=== PATIENT | male | born 1950 | race Caucasian/White ===

== ENCOUNTER 2017-04-04 08:03 | Observation (INO) | payer MEDICARE, OTHER ==
--- NOTE | 2017-04-04 08:19 | ED Physician Documentation ---
PD HPI FOCAL NEURO - Stated complaint Stated Complaint: L ARM NUMBNESS - Chief complaint Chief Complaint: Neuro - History obtained from History obtained from: Patient - History of Present Illness Timing - onset: How many hours ago (1.5) Timing - duration: Minutes (90) Timing - details: Still present Time of symptom onset unknown: Time of onset unknown (06:30 am) Severity of deficit: Mild Numbness: Arm, Hand, Left Associated symptoms: No: Headache, Nausea / vomiting, Chest pain Baseline status: positive: A&OX3, ambulatory, indep Similar symptoms before: Has not had sx before - Additional information Additional information: The patient is a 66-year-old male who presents with numbness of his left upper extremity that started about 90 minutes prior to arrival while he was sitting watching the morning news. He denies any associated weakness, and he denies any symptoms involving his face or lower extremities. He denies headache, lightheadedness, chest pain, shortness of breath, nausea or vomiting. He denies history of similar symptoms in the past. Review of Systems Constitutional: denies: Fever, Fatigue Eyes: denies: Decreased vision Ears: denies: Tinnitus/ringing Nose: denies: Congestion Throat: denies: Sore throat Cardiac: denies: Chest pain / pressure, Palpitations Respiratory: denies: Dyspnea, Cough GI: denies: Abdominal Pain, Nausea, Vomiting : denies: Dysuria Skin: denies: Rash Musculoskeletal: reports: Back pain (left mid back). denies: Neck pain, Extremity pain, Extremity swelling Neurologic: reports: Numbness (Left upper extremity.). denies: Focal weakness, Altered mental status, Headache PD PAST MEDICAL HISTORY - Past Medical History Cardiovascular: High cholesterol Respiratory: None Neuro: None Endocrine/Autoimmune: None GI: None : Kidney stones HEENT: None Psych: None Musculoskeletal: None Derm: None - Past Surgical History Past Surgical History: Yes General: Other (hernia) - Present Medications Home Medications: Ambulatory Orders Medication Instructions Recorded Confirmed Acetaminophen 325 mg PO Q6H PRN 04/04/17 04/04/17 - Allergies Allergies/Adverse Reactions: Allergies Allergy/AdvReac Type Severity Reaction Status Date / Time No Known Drug Allergies Allergy Verified 12/29/14 15:58 - Social History Does the pt smoke?: No Smoking Status: Never smoker Does the pt drink ETOH?: Yes Does the pt have substance abuse?: No - Immunizations Immunizations are current?: Yes PD ED PE NORMAL - Vitals Vital signs reviewed: Yes - General General: Alert and oriented X 3, Well developed/nourished - HEENT HEENT: Atraumatic, PERRL, EOMI, Moist mucous membranes, Pharynx benign - Neck Neck: Supple, no meningeal sign, No adenopathy, No JVD - Cardiac Cardiac: RRR, No murmur - Respiratory Respiratory: No respiratory distress, Clear bilaterally - Abdomen Abdomen: Soft, Non tender - Back Back: No CVA TTP, No spinal TTP - Derm Derm: No rash - Extremities Extremities: No edema, No calf tenderness / cord - Neuro Neuro: Alert and oriented X 3, care aide 2-12 intact, No motor deficit, Normal speech , Other (Decreased light touch sensation left upper extremity and left lower extremity.) Eye Opening: Spontaneous Motor: Obeys Commands Verbal: Oriented GCS Score: 15 NIHSS - Time Time: 08:10 - Level of Consciousness Level of consciousness: (0) Alert, Keenly responsive LOC Questions: (0) Answers both Q's correct LOC Commands: (0) Performs both correctly - Gaze Best Gaze: (0) Normal - Visual Visual: (0) No loss - Facial Palsy Facial Palsy: (0) Normal, symmetrical movement - Motor Arms (both separate) Motor Arm (right): (0) No drift Motor Arm (left): (0) No drift - Motor Legs (both separate) Motor Leg (right): (0) No drift Motor Leg (left): (0) No drift - Limb Ataxia Limb Ataxia: (0) Absent - Sensory Sensory: (1) Kwmz-ir-vellnawg loss - Best Language Best Language: (0) No aphasia - Dysarthria Dysarthria: (0) Normal - Extinction and Inattention (formally neg Extinction and inattention: (0) No abnormality - Total Score/Results Total Score/Result: 1 Results - Vitals Vitals: Vital Signs - 24 hr 04/04/17 04/04/17 04/04/17 08:11 08:33 08:45 Temperature 36.2 C L Heart Rate 67 65 62 Respiratory 17 15 12 Rate Blood Pressure 154/89 H 135/79 H 135/79 H O2 Saturation 97 99 97 Oxygen O2 Source Room air - EKG (time done) 08:12 Rate: Rate (enter#) (62) Rhythm: NSR, LAE [place]: Normal Intervals: Normal ID QRS: Normal Ischemia: Normal ST segments Computer interpretation: Agree with computer - Labs Labs: Laboratory Tests 04/04/17 04/04/17 04/04/17 08:40 08:40 08:40 WBC 8.8 RBC 4.78 Hgb 15.0 Hct 44.6 MCV 93.4 MCH 31.4 H MCHC 33.6 RDW 13.3 Plt Count 226 MPV 7.5 Neut # 4.1 Lymph # 3.7 H [place] # 0.7 Eos # 0.1 Baso # 0.1 Absolute Nucleated RBC 0.00 Nucleated RBC % 0.0 PT 11.8 INR 1.0 APTT 28.1 Sodium 138 Potassium 4.0 Chloride 101 Carbon Dioxide 25 Anion Gap 12.0 BUN 15 Creatinine 0.7 Estimated GFR (MDRD) 112 Glucose 146 H Calcium 9.4 Total Bilirubin 0.8 AST 25 ALT 31 Alkaline Phosphatase 38 L Troponin I Total Protein 6.7 Albumin 3.9 Globulin 2.8 Albumin/Globulin Ratio 1.4 Triglycerides Cholesterol LDL Cholesterol, Calc VLDL Cholesterol HDL Cholesterol LDL/HDL Ratio Cholesterol/HDL Ratio Lipase 35 04/04/17 04/04/17 08:40 08:40 WBC RBC Hgb Hct MCV MCH MCHC RDW Plt Count MPV Neut # Lymph # [place] # Eos # Baso # Absolute Nucleated RBC Nucleated RBC % PT INR APTT Sodium Potassium Chloride Carbon Dioxide Anion Gap BUN Creatinine Estimated GFR (MDRD) Glucose Calcium Total Bilirubin AST ALT Alkaline Phosphatase Troponin I < 0.04 Total Protein Albumin Globulin Albumin/Globulin Ratio Triglycerides 243 H Cholesterol 206 H LDL Cholesterol, Calc 123 VLDL Cholesterol 49 HDL Cholesterol 34 L LDL/HDL Ratio 3.6 Cholesterol/HDL Ratio 6.1 Lipase - Rads (name of study) Head CT stroke protocol Radiology: Prelim report reviewed, EMP read contemporaneously, See rad report ( Normal head CT. No evidence of intracranial hemorrhage or recent infarct.) PD MEDICAL DECISION MAKING - ED course Complexity details: reviewed results, re-evaluated patient, considered differential, d/w patient, d/w senior telecommunications consultant ED course: The patient's presentation is suggestive of stroke versus TIA, with left sided mild sensory deficit. Examination reveals no evident motor deficit. Head CT stroke protocol reveals no intracranial hemorrhage or mass-effect. Treatment in the emergency department included administration of 4 baby aspirin orally. I discussed his condition with the neurologist at [facility], and he advises against TPA given the minor nature of the patient's symptoms, and the fact that his deficit has been improving since his arrival in the emergency department. I discussed risks and benefits of TPA with the patient, and he agrees that the potential risk is greater than the expected benefit. I discussed his condition with Dr. Ann, the hospitalist, who will admit him for further evaluation and treatment. Departure - Departure Disposition: ED Place in Observation Clinical Impression: Left sided numbness Condition: Stable Discharge Date/Time: 04/04/17 10:20
--- NOTE | 2017-04-04 08:40 | CT Report ---
EXAM: CT HEAD EXAM DATE: 04/04/2017 08:29 AM. CLINICAL HISTORY: Left sided numbness since 6:30 AM today. COMPARISON: None. TECHNIQUE: Multiaxial CT images were obtained from the foramen magnum to the vertex. Reformats: Coron al. IV contrast: None. In accordance with CT protocol optimization, one or more of the following dose reduction techniques w ere utilized for this exam: automated exposure control, adjustment of mA and/or KV based on patient s ize, or use of iterative reconstructive technique. FINDINGS: Parenchyma: No intraparenchymal hemorrhage. No evidence of mass, midline shift, or CT findings of inf arction. Naqvi-white differentiation is distinct. Tiny physiologic left basal ganglia calcification. Extraaxial Spaces: Normal for age. No subdural or epidural collections identified. Ventricles: Normal in size and position. Sinuses and Orbits: Imaged paranasal sinuses, orbits, and mastoids show no significant abnormality. Bones: No evidence of fracture or calvarial defect. Other: None. IMPRESSION: Normal head CT. No evidence for intracranial hemorrhage or large recent infarct. CRITICAL TEST: The findings were discussed with Dr. Dietrich on date of exam at 8:36 AM. [facility] Referring Provider Line: [phone] SITE ID: [id number]
[2017-04-04 08:44] LABS: BASOPHILS # (AUTO) 0.1 10^3/uL (0.0-0.1); BASOPHILS % (AUTO) 1.1 %; EOSINOPHILS # (AUTO) 0.1 10^3/uL (0.0-0.7); EOSINOPHILS % (AUTO) 1.5 %; LYMPHOCYTES # (AUTO) 3.7 10^3/uL (1.5-3.5); LYMPHOCYTES % (AUTO) 42.1 %; MEAN CORPUSCULAR HEMOGLOBIN 31.4 pg (27.0-31.0); MEAN CORPUSCULAR HGB CONC 33.6 g/dL (32.0-36.0); MEAN CORPUSCULAR VOLUME 93.4 fL (80.0-94.0); MEAN PLATELET VOLUME 7.5 fL (7.4-11.4); MONOCYTES # (AUTO) 0.7 10^3/uL (0.0-1.0); MONOCYTES % (AUTO) 8.5 %; NEUTROPHILS # (AUTO) 4.1 10^3/uL (1.5-6.6); NEUTROPHILS % (AUTO) 46.8 %; PLT - PLATELET COUNT 226 10^3/uL (130-450); RED BLOOD COUNT 4.78 10^6/uL (4.70-6.10); RED CELL DISTRIBUTION WIDTH 13.3 % (12.0-15.0); WHITE BLOOD COUNT 8.8 x10^3/uL (4.8-10.8)
[2017-04-04] MEDS ORDERED: ASPIRIN CHEW 81 MG TABLET PO STA (08:49)
[2017-04-04 08:50] LABS: PT - PROTHROMBIN TIME 11.8 secs (9.9-12.6)
[2017-04-04 08:57] LABS: ALBUMIN 3.9 g/dL (3.2-5.5); ALBUMIN/GLOBULIN RATIO 1.4 (1.0-2.2); BILIRUBIN,TOTAL 0.8 mg/dL (0.2-1.0); CALCIUM 9.4 mg/dL (8.5-10.3); CREATININE 0.7 mg/dL (0.6-1.2); TOTAL PROTEIN 6.7 g/dL (6.7-8.2)
[2017-04-04] MEDS ORDERED: HYDROmorphone 1 MG/ML SYRINGE IVP PRN (08:58)
[2017-04-04] MEDS ORDERED: ACETAMINOPHEN 325 MG TABLET PO PRN (08:58)
[2017-04-04] MEDS ORDERED: PROCHLORPERAZINE 10 MG/2 ML VIAL IVP PRN (08:58)
[2017-04-04] MEDS ORDERED: SODIUM CHLORIDE FLUSH 0.9% 10 ML SYRINGE IVP PRN (08:58)
[2017-04-04] MEDS ORDERED: ZOLPIDEM 5 MG TABLET PO PRN (08:58)
[2017-04-04 09:26] LABS: CHOL/HDL RATIO 6.1 (<5.0); CHOLESTEROL 206 mg/dL; HDL CHOLESTEROL 34 mg/dL; LDL CHOLESTEROL,CALCULATED 123 mg/dL; LDL/HDL RATIO 3.6 (<3.6); VLDL CHOLESTEROL 49 mg/dL
[2017-04-04] MEDS: FAMOTIDINE 20 MG TABLET PO SCH (11:30)
[2017-04-04] MEDS: POLYETHYLENE GLYCOL 3350 17 GM PACKET PO SCH (11:30)
--- NOTE | 2017-04-04 11:55 | Ultrasound Report ---
CAROTID DUPLEX: 04/04/2017 CLINICAL INDICATION: TIA. TECHNIQUE: Real-time sonographic vascular imaging was performed by the fund director through the carotid arteries utilizing both color-flow and Doppler spectral analysis. Multiple call center representative static images were saved for review. RIGHT Vessel PSV cm/sec EDV cm/sec ICA/CCA PSV Ratio Degree of stenosis Plaque Estimate% RCCA Prox 97 --- --- --- --- RCCA Dist 83 22 --- --- --- RECA 114 --- --- --- --- RT BULB 137 22 1.65 --- --- JOSIAS Prox 48 16 0.57 --- --- JOSIAS Mid 55 19 0.66 --- --- JOSIAS Dist 65 22 0.78 --- --- RVA 44 --- --- --- --- RVA flow direction: Antegrade LEFT Vessel PSV cm/sec EDV cm/sec ICA/CCA PSV Ratio Degree of stenosis Plaque Estimate% LCCA Prox 98 --- --- --- --- LCCA Dist 79 22 --- --- --- LECA 127 --- --- --- --- LFT BULB 90 24 1.1 --- --- LICA Prox 60 15 0.75 --- --- LICA Mid 73 28 0.92 --- --- LICA Dist 64 21 0.81 --- --- LVA 62 --- --- --- --- LVA flow direction: Antegrade Velocity criteria are extrapolated from diameter data as defined by the Society of Radiologists in Ultrasound Consensus Conference Radiology 2003; 229; 340-346. Degree of Stenosis ICA PSV cm/sec ICA/CCA RSV Ratio ICA EDV cm/sec Plaque Estimate % % Normal < 125 < 40 < 2.0 None <50 < 125 <40 < 2.0 < 50 50-69 125-130 40-100 2.0-4.0 >/= 50 >/=70 but less than> 230 > 100 > 4.0 >/= 50 near occlusion Near occlusion High, low or Variable Variable Visible undetectable Total occlusion Undetectable Not applicable Not applicable No detectable lumen FINDINGS RIGHT: There is calcified plaquing in the right carotid bifurcation, without evidence of a focal hemodynamically significant stenosis. LEFT: There is calcified plaquing in the left carotid bifurcation, without evidence of a focal hemodynamically significant carotid stenosis. The vertebral arteries demonstrate antegrade flow bilaterally. Incidental note is made of a left thyroid nodule. If this has not been previously evaluated, outpatient followup thyroid ultrasound is recommended. IMPRESSION: NO EVIDENCE OF A HEMODYNAMICALLY SIGNIFICANT CAROTID STENOSIS. TD: 04/04/2017 11:22 SHANNAN
[2017-04-04] MEDS: SODIUM CHLORIDE FLUSH 0.9% 10 ML SYRINGE IVP SCH ×2 (15:04→22:00)
[2017-04-05] MEDS: SODIUM CHLORIDE FLUSH 0.9% 10 ML SYRINGE IVP SCH (05:59)
[2017-04-05 07:32] VITALS: BP 120/76
[2017-04-05 07:55] LABS: CHOL/HDL RATIO 6.3 (<5.0); CHOLESTEROL 222 mg/dL; HDL CHOLESTEROL 35 mg/dL; LDL CHOLESTEROL,CALCULATED 157 mg/dL; LDL/HDL RATIO 4.5 (<3.6); VLDL CHOLESTEROL 30 mg/dL
[2017-04-05] MEDS: FAMOTIDINE 20 MG TABLET PO SCH (08:29)
[2017-04-05] MEDS ORDERED: ASPIRIN CHEW 81 MG TABLET PO SCH (09:00)
[2017-04-05] MEDS ORDERED: TAMSULOSIN 0.4 MG CAPSULE PO SCH (09:00)
--- NOTE | 2017-04-05 10:29 | Discharge Plan ---
Discharge Plan Disposition: 01 Home, Self Care Condition: Stable Diet: Cardiac Activity Restrictions: No Restrictions Shower Restrictions: No Driving Restrictions: No Additional Instructions or Follow Up instructions: See your PCP and/or a Chiropractor regarding this numbness No Smoking: If you smoke, Please STOP! Call for help.
[2017-04-05] MEDS: POLYETHYLENE GLYCOL 3350 17 GM PACKET PO SCH (10:39)
--- NOTE | 2017-04-05 13:21 | MRI Report ---
EXAM: MRI CERVICAL SPINE WITHOUT CONTRAST EXAM DATE: 04/05/2017 11:50 AM. CLINICAL HISTORY: 66-year-old man with left hand and forearm numbness since yesterday morning. COMPARISONS: None. TECHNIQUE: Multiplanar, multisequence T1-weighted and fluid-sensitive sequences of the cervical spine without contrast. Other: None. FINDINGS: Neurologic Structures: Cord is normal in signal and caliber. Alignment: No scoliosis or spondylolisthesis. Bone Marrow: No gross fractures or bone lesions. Minimal degenerative endplate edema is present at C5 -C6, right side worse than left, and along the posterior corners of C3-C4. Interspace Levels/Facets: C2-C3: Unremarkable. C3-C4: There is mild disk height loss. Broad based disk bulge results in mild narrowing of the centra l canal. Uncovertebral joint hypertrophy and facet hypertrophy result in mild/moderate narrowing of t he right neural foramen and mild narrowing on the left. C4-C5: Small broad-based disk bulge and focal thickening of ligamentum flavum resulting in mild/moder ate narrowing of the central canal. Uncovertebral joint hypertrophy and facet hypertrophy result in m oderate narrowing of the left neural foramen and mild/moderate narrowing on the right. C5-C6: There is moderate disk height loss. Broad-based disk bulge results in moderate narrowing of th e central canal. Uncovertebral joint hypertrophy result in moderate narrowing of the neural foramina bilaterally, left side worse than right. C6-C7: There is mild disk height loss. Right paracentral disk bulge results in mild narrowing of the central canal. Uncovertebral joint hypertrophy results in mild to moderate narrowing of the right sana ral foramen and minimal narrowing on the left. C7-T1: Unremarkable. Musculature: Normal. No edema or fatty atrophy. Other: 14 mm cyst is present along the posterior margin of the left lobe of the thyroid. The paravert ebral and prevertebral soft tissues are otherwise unremarkable. IMPRESSION: 1. Multilevel degenerative disk changes with mild bony endplate edema at C5-C6 and, to a lesser exten t, C3-C4. 2. Degenerative changes result in the following: - C3-C4: Mild narrowing of the central canal. Mild to moderate narrowing of the right neural foramen and mild narrowing on the left. - C4-C5: Mild to moderate narrowing of the central canal. Moderate narrowing of the left neural esdras en and mild to moderate narrowing on the right. - C5-C6: Moderate narrowing of the central canal. Moderate narrowing of the neural foramina bilateral ly, left side worse and right. - C6-C7: Mild narrowing of the central canal. Mild to moderate narrowing of the right neural foramen. [facility] Referring Provider Line: [phone] SITE ID: [id number]
--- NOTE | 2017-04-05 13:24 | MRI Report ---
EXAM: MRI BRAIN WITHOUT CONTRAST EXAM DATE: 04/05/2017 11:51 AM. CLINICAL HISTORY: 66-year-old man with TIA. Patient had left hand and forearm numbness beginning yest erday morning. COMPARISON: Noncontrast head CT on 04/04/2017. TECHNIQUE: Multiplanar, multisequence T1-weighted and fluid-sensitive MR sequences of the brain were performed. Sequences optimized for routine evaluation. Other: None. IV Contrast: None. FINDINGS: Parenchyma: Small focus of restricted diffusion with prominent corresponding FLAIR hyperintensity is present in the right postcentral gyrus, consistent with acute infarct. Infarct measures approximately 10 x 8 mm in maximum axial dimensions. No evidence of hemorrhage on susceptibility weighted sequence . Small focus of encephalomalacia is present in the left precentral and postcentral gyrus, consistent w ith remote infarct and measuring approximately 12 mm in maximum diameter. Otherwise, parenchyma demon strates minimal nonspecific FLAIR hyperintensities in the deep cerebral and periventricular white mat ter. No evidence of prior hemorrhage on susceptibility weighted sequence. Pituitary: Unremarkable. Ventricles and Extra-axial Spaces: Ventricles are nearly symmetric and normal in size for age. Extra- axial spaces are unremarkable. Orbits: Unremarkable. Sinuses: Paranasal sinuses and mastoid air cells are clear. Major Vascular Flow Voids: Intact. IMPRESSION: 1. Small acute infarct (1-7 days) in the right post central gyrus. No evidence of hemorrhage. 2. Small focus of encephalomalacia in the left precentral and post central gyrus, consistent with rem ote infarct. [facility] The above findings were discussed with NAEL Laughlin by Dr. Matthew Tello at 13:22 hrs on . Referring Provider Line: [phone] SITE ID: [id number]
--- NOTE | 2017-04-05 19:51 | HISTORY & PHYSICAL EXAMINATION ---
DATE OF SERVICE: 04/04/2017 Physician: Gabriella Lake MD DATE OF ADMISSION: 04/04/2017. HISTORY OF PRESENT ILLNESS: This is a 66-year-old white male with a negative past medical history. He takes no routine prescription medications, only Tylenol p.r.n. pain. The patient presented with sudden onset of left palm numbness, extending to the 4th and 5th fingers of the plantar surface of his hand. He was worried that this was a stroke and presented to the emergency room. The emergency room evaluation also described possible numbness of the left lower extremity and his imaging study showed no stroke by CT scan, but he was admitted for further evaluation for stroke-like symptoms. His symptoms were already improving. The emergency room doctor called the neurologist for decision regarding tPA, and it was decided not to use it because the patient's symptoms were declining and the patient did not want to undergo the bleeding risk. He is being placed in Observation for workup for a TIA. PAST MEDICAL HISTORY: Negative. MEDICATIONS AT HOME: only Tylenol p.r.n. pain. ALLERGIES: NONE. SOCIAL HISTORY: The patient is a nonsmoker. Drinks social alcohol. Denies any illicit drug use. The patient is active. He used to be a motor cyclist and a snowboarder. REVIEW OF SYSTEMS: A comprehensive review of systems was performed and only the positives are as above. PHYSICAL EXAMINATION: GENERAL: A white male in no distress, sitting in a chair. VITAL SIGNS: Blood pressure 150/100. Heart rate 55, in sinus rhythm. Afebrile. Room air saturation 97%. HEENT: Unremarkable. Moist oral mucosa. NECK: Without JVD, carotid bruits, thyromegaly, or lymphadenopathy. LUNGS: Clear. HEART: Heart sounds normal. No audible murmur or gallop. ABDOMEN: Soft with positive bowel sounds. No tenderness or organomegaly. EXTREMITIES: No clubbing, cyanosis or edema. NEUROLOGIC: Cranial nerves are intact. There is no weakness of the upper or lower extremities and symmetrical strength bilaterally. Reflexes are normal grossly. He does have abnormal sensation to light touch in the left palmar area, not in the legs in any location. LABORATORY DATA: Normal electrolytes. Normal BUN and creatinine. Normal liver tests. Troponin not detectable. Cholesterol 206, LDL 123, triglycerides 243, lipase normal. INR normal. CBC essentially normal. EKG: Normal sinus rhythm, left atrial enlargement, PAC; otherwise within normal limits. IMAGING: Head CT: Normal head CT with no evidence of hemorrhage or large recent infarct. Carotid Doppler: Calcifying plaque in the right carotid bifurcation but no significant stenosis is described bilaterally, and the vertebral arteries have antegrade flow. IMPRESSION/DIAGNOSES 1. Transient ischemic attack versus cervical spine "pinched nerve". 2. Hypertension. 3. Possible sleep apnea with noncompliance with CPAP (from a nurse's report to me). PLAN: Place the patient in Observation. Do gfrequent neuro checks. Monitor rhythm on telemetry to rule out atrial fibrillation. Obtain an echo to evaluate for a cardiac source of embolus or an intracardiac shunt. Obtain a brain MRI/MRA and a cervical spine MRI, as well. Recheck cholesterol levels, as the ones available were not done from a fasting blood specimen. Deep venous thrombosis prophylaxis: SCDs. No anticoagulant, as there may be evidence of post-stroke hemorrhagic evolvement on brain imaging. CODE STATUS: FULL CODE. ATTESTATION: The patient is expected to be discharged or transferred to another facility within hours: Yes. TD: 04/05/2017 19:43 SHANNAN
--- NOTE | 2017-04-16 04:42 | DISCHARGE SUMMARY ---
Physician: Gabriella Lake MD DATE OF ADMISSION: 04/04/2017 DATE OF DISCHARGE: 04/05/2017 HISTORY OF PRESENT ILLNESS: This is a 66-year-old, white male with a negative past medical history who takes no prescription medications except Tylenol p.r.n. pain. He presented with acute onset of left palm numbness, and was placed in observation for evaluation of a TIA. The patient described waxing and waning symptoms while here and these were improved if he "got up and shook his left arm." Various imaging studies were done. HOSPITAL COURSE AND DISCHARGE DIAGNOSES 1. Transient ischemic attack. He had a head CT done initially while in the emergency room, this showed no acute findings. Imaging studies were done the following day and included a brain MRI which showed small acute infarct (1-7 days old) in the right posterior central gyrus without hemorrhage. Also, a small focus of encephalomalacia in the left precentral and post-central gyrus, consistent with a remote infarct. Because of these findings, the patient had education regarding causes of transient ischemic attack and cerebrovascular accident. Good risk factor management was advised. He was started on aspirin and Plavix daily and lipid management daily (see below). Recommendation is to follow up in the [facility] ([place], [place]) Neurology Stroke Clinic or with a neurologist from referral of his PCP. 2. Old cerebrovascular accident. As per the brain MRI imaging, there was already evidence of prior stroke and the same management is advised. 3. C-spine disease. Because some of his symptoms were atypical for stroke, in that they improved with "shaking his arm," the patient also underwent cervical spine imaging which showed multilevel degenerative disk changes with mild bony endplate edema at C5-C6 and C3-C4 , and degenerative changes with mild narrowing of the central cord between C3-C4, C4-C5, C5- C6 and C6-C7. Further management of this is also advised. 4. Hyperlipidemia. A fasting lipid panel was performed and this showed a total cholesterol of 222, LDL of 157, triglycerides of 151, and HDL of 35. Because of this , he was started on Lipitor 40 mg p.o. daily in the evening and a heart healthy diet was reviewed with him by myself. ALLERGIES: NO KNOWN ALLERGIES. MEDICATIONS AT THE TIME OF DISCHARGE 1. Lipitor 40 mg at bedtime. 2. Baby aspirin daily. 3. Plavix 75 mg daily. LABORATORIES AND IMAGING: Reviewed and summarized above. CONDITION AT DISCHARGE: Stable. PHYSICAL EXAMINATION AT DISCHARGE VITAL SIGNS: Blood pressure 120/76, pulse of 58 in sinus rhythm, afebrile, room air saturation 96%. HEENT: Unremarkable. NECK: Without JVD or carotid bruits. CHEST: Clear. HEART: Sounds normal. No audible murmurs. ABDOMEN: Soft. Positive bowel sounds. Nontender. EXTREMITIES: No clubbing, cyanosis or edema. NEUROLOGIC: Grossly intact. CODE STATUS: FULL CODE. FOLLOWUP: PCP and neurologist or [facility] ([place], [place]) Neurology Stroke Clinic. TIME REQUIRED TO COMPLETE THIS ENTIRE DISCHARGE: 45 minutes. TD: 04/16/2017 04:41 SHANNAN
== END 2017-04-05 14:13 | disposition home or self-care (01) ==
LOC: ED 08:03 → OBS 08:58
PROVIDERS: ADMIT Internal Medicine; ATTEND Internal Medicine
DX: I63.9 Cerebral infarction, unspecified (principal); I10 Essential (primary) hypertension; E78.5 Hyperlipidemia, unspecified; G83.24 Monoplegia of upper limb affecting left nondominant side; R40.2412 Glasgow coma scale score 13-15, at arrival to emergency department; R29.701 NIHSS score 1; Z86.73 Personal history of transient ischemic attack (TIA), and cerebral infarction without residual deficits
CPT/HCPCS: 36415; 70450; 70551; 72141; 80053; 80061; 83690; 84484; 85025; 85610; 85730; 93005; 93306; 93880; 99285; A9270; G0378; 83721; 99284

== ENCOUNTER 2017-11-04 11:12 | Outpatient (CLI) | payer MEDICARE, OTHER ==
--- NOTE | 2017-11-04 14:29 | XRAY Report ---
Reason: OSTEOARTHRITIS,KNEE RT.,LT SHOIULDER PAIN Procedure Date: 11/04/2017 Accession Number: [id number] / [id number] Procedure: XR - Knee 3 View RT CPT Code: FULL RESULT: EXAM: RIGHT KNEE RADIOGRAPHY EXAM DATE: 11/04/2017 11:53 AM. CLINICAL HISTORY: Right knee pain COMPARISON: None. TECHNIQUE: 3 views. FINDINGS: Bones: No fractures or bone lesions. Joints: Minimal early patellofemoral spurring. No effusion. No subluxations. Soft Tissues: Vascular calcification No soft tissue swelling. IMPRESSION: Negative right knee radiography for age. [facility]
--- NOTE | 2017-11-04 14:38 | XRAY Report ---
Reason: OSTEOARTHRITIS,KNEE RT, LT SHOULDER PAIN Procedure Date: 11/04/2017 Accession Number: [id number] / [id number] Procedure: XR - Shoulder 2 View LT CPT Code: FULL RESULT: EXAM: LEFT SHOULDER RADIOGRAPHY EXAM DATE: 11/04/2017 11:53 AM. CLINICAL HISTORY: LT SHOULDER PAIN. COMPARISON: None. TECHNIQUE: 3 views. FINDINGS: Bones: No fracture or bone lesion. Joints: The glenohumeral and acromioclavicular joints are anatomically aligned. There is degenerative change at the acromioclavicular articulation with spurring. Soft tissues: The included hemithorax is unremarkable. No soft tissue calcification. IMPRESSION: Mild left shoulder degenerative change without superimposed acute findings. [facility]
== END 2017-11-04 11:13 | disposition home or self-care (01) ==
LOC: DI 11:12
PROVIDERS: ATTEND Family Medicine
DX: M19.012 Primary osteoarthritis, left shoulder (principal); M17.11 Unilateral primary osteoarthritis, right knee

== ENCOUNTER 2018-05-11 12:46 | Outpatient (CLI) | payer MEDICARE, OTHER | END 2018-05-11 12:47 | disposition home or self-care (01) | LOC: SC 12:46 | PROVIDERS: ATTEND Internal Medicine Pulmonary Disease | DX: G47.33 Obstructive sleep apnea (adult) (pediatric) (principal); E66.9 Obesity, unspecified; Z68.37 Body mass index [BMI] 37.0-37.9, adult | CPT/HCPCS: 99203; G0463; 99212 ==

== ENCOUNTER 2018-05-26 12:10 | Outpatient (CLI) | payer MEDICARE, OTHER ==
[2018-05-26 19:03] LABS: BILIRUBIN,URINE NEGATIVE (NEGATIVE); GLUCOSE, URINE (UA) NEGATIVE (NEGATIVE); KETONES,URINE (UA) NEGATIVE (NEGATIVE); LEUKOCYTE ESTERASE, URINE NEGATIVE (NEGATIVE); NITRITE,URINE NEGATIVE (NEGATIVE); OCCULT BLOOD,URINE NEGATIVE (NEGATIVE); PROTEIN,URINE NEGATIVE (NEGATIVE); UROBILINOGEN,URINE 0.2 (NORMAL) E.U./dL (NORMAL)
[2018-05-26 19:05] LABS: CLARITY,URINE CLEAR (CLEAR)
[2018-05-26 19:21] LABS: BASOPHILS % (AUTO) 0.3 %; EOSINOPHILS # (AUTO) 0.1 10^3/uL (0.0-0.7); EOSINOPHILS % (AUTO) 1.2 %; HGB - HEMOGLOBIN 14.6 g/dL (14.0-18.0); LYMPHOCYTES # (AUTO) 3.8 10^3/uL (1.5-3.5); MEAN CORPUSCULAR HEMOGLOBIN 31.9 pg (27.0-31.0); MEAN CORPUSCULAR VOLUME 93.8 fL (80.0-94.0); MEAN PLATELET VOLUME 8.5 fL (7.4-11.4); MONOCYTES # (AUTO) 0.5 10^3/uL (0.0-1.0); MONOCYTES % (AUTO) 5.8 %; NEUTROPHILS # (AUTO) 3.5 10^3/uL (1.5-6.6); NEUTROPHILS % (AUTO) 44.7 %; PLT - PLATELET COUNT 211 10^3/uL (130-450); RED BLOOD COUNT 4.58 10^6/uL (4.70-6.10); RED CELL DISTRIBUTION WIDTH 13.2 % (12.0-15.0); WHITE BLOOD COUNT 7.9 x10^3/uL (4.8-10.8)
[2018-05-26 19:26] LABS: ALBUMIN 4.5 g/dL (3.2-5.5); ALBUMIN/GLOBULIN RATIO 1.8 (1.0-2.2); ALKALINE PHOSPHATASE 45 IU/L (42-121); ALT ALANINE AMINOTRANSFERASE 27 IU/L (10-60); AST ASPARTATE AMINOTRANSFERASE 22 IU/L (10-42); BILIRUBIN,TOTAL 0.8 mg/dL (0.2-1.0); BUN - BLOOD UREA NITROGEN 12 mg/dL (6-20); CALCIUM 9.1 mg/dL (8.5-10.3); CARBON DIOXIDE - CO2 27 mmol/L (21-32); CHLORIDE 105 mmol/L (101-111); CHOL/HDL RATIO 3.3 (<5.0); CHOLESTEROL 120 mg/dL; CREATININE 0.7 mg/dL (0.6-1.2); GFR - MDRD 112 (>89); GLUCOSE 107 mg/dL (70-100); HDL CHOLESTEROL 36 mg/dL; LDL CHOLESTEROL,CALCULATED 66 mg/dL; LDL/HDL RATIO 1.8 (<3.6); SODIUM 140 mmol/L (135-145); VLDL CHOLESTEROL 18 mg/dL
[2018-05-26 20:15] LABS: HB2 TOTAL 15.5 g/dL; HEMOGLOBIN A1C 0.69 g/dL; HEMOGLOBIN A1C % 6.2 % (4.6-6.2)
[2018-05-27 13:26] LABS: HEPATITIS C ANTIBODY NON-REACTIVE (NON-REACTIVE)
== END 2018-05-26 12:11 | disposition home or self-care (01) ==
LOC: LAB.WCP 12:10
PROVIDERS: ATTEND Family Medicine
DX: E78.5 Hyperlipidemia, unspecified (principal); R31.9 Hematuria, unspecified; R73.01 Impaired fasting glucose; Z12.5 Encounter for screening for malignant neoplasm of prostate; I10 Essential (primary) hypertension; Z11.59 Encounter for screening for other viral diseases
CPT/HCPCS: 36415; 80053; 80061; 81003; 83036; 85025; 86803; G0103; 81001; 83721; 84153; 87086

== ENCOUNTER → 2018-10-28 | Outpatient (CLI) | payer MEDICARE, OTHER ==
[2018-10-28 18:53] LABS: BASOPHILS % (AUTO) 0.5 %; EOSINOPHILS # (AUTO) 0.1 10^3/uL (0.0-0.7); EOSINOPHILS % (AUTO) 1.1 %; HGB - HEMOGLOBIN 14.5 g/dL (14.0-18.0); LYMPHOCYTES # (AUTO) 3.3 10^3/uL (1.5-3.5); LYMPHOCYTES % (AUTO) 40.8 %; MEAN CORPUSCULAR HEMOGLOBIN 32.2 pg (27.0-31.0); MEAN CORPUSCULAR HGB CONC 33.3 g/dL (32.0-36.0); MEAN CORPUSCULAR VOLUME 96.9 fL (80.0-94.0); MEAN PLATELET VOLUME 10.1 fL (7.4-11.4); MONOCYTES # (AUTO) 0.5 10^3/uL (0.0-1.0); MONOCYTES % (AUTO) 6.7 %; NEUTROPHILS # (AUTO) 4.1 10^3/uL (1.5-6.6); NEUTROPHILS % (AUTO) 50.3 %; PLT - PLATELET COUNT 233 10^3/uL (130-450); WHITE BLOOD COUNT 8.1 x10^3/uL (4.8-10.8)
[2018-10-28 19:15] LABS: ALBUMIN 4.1 g/dL (3.2-5.5); ALBUMIN/GLOBULIN RATIO 1.4 (1.0-2.2); BILIRUBIN,TOTAL 0.7 mg/dL (0.2-1.0); CALCIUM 9.4 mg/dL (8.5-10.3); CREATININE 0.7 mg/dL (0.6-1.2); URIC ACID 4.6 mg/dL (2.6-7.2)
== END ==
LOC: LAB.WCP 08:00
PROVIDERS: ATTEND Family Medicine
DX: N20.0 Calculus of kidney (principal)
CPT/HCPCS: 36415; 80053; 84550; 85025

== ENCOUNTER 2018-10-30 08:00 | Outpatient (CLI) | payer MEDICARE, OTHER | END 2018-10-30 23:59 | disposition home or self-care (01) | LOC: LAB.WCP 08:00 | PROVIDERS: ATTEND Family Medicine | DX: N20.0 Calculus of kidney (principal) | CPT/HCPCS: 81599; 84560 ==

== ENCOUNTER 2019-05-21 08:00 | Outpatient (CLI) | payer MEDICARE, OTHER ==
[2019-05-21 12:24] LABS: BASOPHILS % (AUTO) 0.4 %; EOSINOPHILS # (AUTO) 0.1 10^3/uL (0.0-0.7); EOSINOPHILS % (AUTO) 1.6 %; HGB - HEMOGLOBIN 14.7 g/dL (14.0-18.0); LYMPHOCYTES # (AUTO) 3.9 10^3/uL (1.5-3.5); LYMPHOCYTES % (AUTO) 43.6 %; MEAN CORPUSCULAR HEMOGLOBIN 31.1 pg (27.0-31.0); MEAN CORPUSCULAR VOLUME 94.1 fL (80.0-94.0); MEAN PLATELET VOLUME 10.3 fL (7.4-11.4); MONOCYTES # (AUTO) 0.7 10^3/uL (0.0-1.0); MONOCYTES % (AUTO) 7.3 %; NEUTROPHILS # (AUTO) 4.2 10^3/uL (1.5-6.6); NEUTROPHILS % (AUTO) 46.8 %; PLT - PLATELET COUNT 224 10^3/uL (130-450); RED BLOOD COUNT 4.73 10^6/uL (4.70-6.10); RED CELL DISTRIBUTION WIDTH 12.8 % (12.0-15.0)
[2019-05-21 12:49] LABS: ALBUMIN 4.3 g/dL (3.2-5.5); ALBUMIN/GLOBULIN RATIO 1.6 (1.0-2.2); ALKALINE PHOSPHATASE 44 IU/L (42-121); ALT ALANINE AMINOTRANSFERASE 27 IU/L (10-60); AST ASPARTATE AMINOTRANSFERASE 25 IU/L (10-42); BILIRUBIN,TOTAL 1.1 mg/dL (0.2-1.0); BUN - BLOOD UREA NITROGEN 16 mg/dL (6-20); CALCIUM 9.1 mg/dL (8.5-10.3); CARBON DIOXIDE - CO2 24 mmol/L (21-32); CHLORIDE 103 mmol/L (101-111); CHOL/HDL RATIO 3.7 (<5.0); CHOLESTEROL 142 mg/dL; CREATININE 0.7 mg/dL (0.6-1.2); GFR - MDRD 111 (>89); GLUCOSE 115 mg/dL (70-100); HDL CHOLESTEROL 38 mg/dL; LDL CHOLESTEROL,CALCULATED 86 mg/dL; LDL/HDL RATIO 2.3 (<3.6); SODIUM 135 mmol/L (135-145); VLDL CHOLESTEROL 18 mg/dL
[2019-05-21 17:22] LABS: HB2 TOTAL 15.6 g/dL; HEMOGLOBIN A1C 0.65 g/dL
[2019-05-22 11:40] LABS: HEPATITIS C ANTIBODY NON-REACTIVE (NON-REACTIVE)
== END 2019-05-21 23:59 | disposition home or self-care (01) ==
LOC: LAB.WCP 08:00
PROVIDERS: ATTEND Family Medicine
DX: R73.01 Impaired fasting glucose (principal); I10 Essential (primary) hypertension; Z12.5 Encounter for screening for malignant neoplasm of prostate; E78.5 Hyperlipidemia, unspecified; Z11.59 Encounter for screening for other viral diseases
CPT/HCPCS: 36415; 80053; 80061; 83036; 85025; 86803; G0103; 83721; 84153

== ENCOUNTER 2019-10-13 07:00 | Outpatient (CLI) | payer MEDICARE, OTHER ==
[2019-10-13 12:18] LABS: BILIRUBIN,URINE NEGATIVE (NEGATIVE); CLARITY,URINE CLEAR (CLEAR); GLUCOSE, URINE (UA) NEGATIVE (NEGATIVE); KETONES,URINE (UA) NEGATIVE (NEGATIVE); LEUKOCYTE ESTERASE, URINE NEGATIVE (NEGATIVE); NITRITE,URINE NEGATIVE (NEGATIVE); OCCULT BLOOD,URINE NEGATIVE (NEGATIVE); PROTEIN,URINE NEGATIVE (NEGATIVE); UROBILINOGEN,URINE 0.2 (NORMAL) E.U./dL (NORMAL)
[2019-10-13 12:26] LABS: BACTERIA,URINE None Seen /HPF (None Seen); RBC,URINE None Seen /HPF (0-5); SQUAMOUS EPITHELIAL CELL,UR NONE SEEN (<= Few)
== END 2019-10-13 23:59 | disposition home or self-care (01) ==
LOC: LAB.R 07:00
PROVIDERS: ATTEND Family Medicine
DX: R35.0 Frequency of micturition (principal)
CPT/HCPCS: 81001; 87086

== ENCOUNTER 2019-11-09 13:50 | Outpatient (CLI) | payer MEDICARE, OTHER ==
--- NOTE | 2019-11-09 14:52 | SLEEP CARE CONSULTATION ---
Information from patient questionnaire entered by Viktoriya Ruiz. I have reviewed and concur with the information entered by Viktoriya Ruiz. This document represents the service I personally performed and the decisions made by me, Doug Park MD, [facility]. History of Present Illness Service Date and Time: 11/09/2019 1350 Previous diagnosis: Mild, Obstructive Sleep Apnea-Hypopnea Syndrome AHI: 5.5 (in 2007) Reason for follow up: annual (last seen 2019) Equipment type: CPAP Equipment obtained from: [employer] Mask style: Full face Prior sleep studies: Yes Year and Where: 2007 - [facility] Type of Sleep Study: Polysomnography HPI additional information: HPI: Mr. Maharaj returned today to follow up on the nasal CPAP therapy. He was diagnosed to have mild obstructive sleep apnea-hypopnea syndrome. The patient wears a nasal mask. He reports using the device nightly and all through the night. There were two extended periods where he could not use it because he had to urinate every hour due to incontinence. The compliance report shows usage in 101 nights out of the past 180 nights. The BackOps Star System One Series device is broken and cannot register is usage (it logs usage as the machine being on but blowing into the room). He complained of no particular problem with the device such as soreness on the face, dry nose, epistaxis, nasal congestion or headache. He thinks that the pressure of 11 cmH2O is comfortable. On the CPAP therapy he notices improvement in his sleep quality, and that he wakes up feeling fresher in the morning and more awake/alert during the day. He was prescribed a new machine last year but he chose [facility] who kept telling him that they would call him beverly which they never did. CPAP Compliance Data - Data Reviewed with Patient Average duration of nightly device use: 49 sec Compliance rate %: 0 (180 days) Current pressure setting (cmH2O): 11 Humidity settin Average residual AHI: 0 Subjective Patient concerns: reports: mask discomfort, dry mouth, nose, throat, other (too loud) Initial [place] Sleepiness Scale score: 11 (in 2019) Current [place] Sleepiness Scale score: 7 Allergies and Home Medications Drug allergies reviewed: Yes Home medication list reviewed: Yes Review of Systems Review of systems same as previous: Yes Physical Exam Vital signs obtained and entered by: To minimize the risk of COVID-19 exposure, detailed exam was not performed. Height: 5 ft 11 in Weight: 265 lb Body Mass Index: 36.9 BMI Classification: Obese Impression and Plan IMPRESSION: 1. Obstructive Sleep Apnea-Hypopnea Syndrome, mild (AHI was 5.5) with the patient doing fairly well on nasal CPAP therapy. He has decent compliance and significant clinical improvement. The machines compliance/efficacy report is unreliable. His machine is old and broken. I will again order him a new one and refer him to a different durable medical supplier. PLAN: 1. Prescription made for an autoCPAP, heated humidifier, and related supplies. 2. Try to lose weight 3. Try [employer]Med AirTouch F-20 full face mask. 4. Return for follow up after one month on the new machine. Location of Provider: Office Time Spent with Patient (minutes): 15
== END 2019-11-09 13:51 | disposition home or self-care (01) ==
LOC: SC 13:50
PROVIDERS: ATTEND Internal Medicine Pulmonary Disease
DX: G47.33 Obstructive sleep apnea (adult) (pediatric) (principal); E66.9 Obesity, unspecified; Z68.36 Body mass index [BMI] 36.0-36.9, adult
CPT/HCPCS: 99213; G0463; 99212

== ENCOUNTER 2021-09-10 10:12 | Outpatient (CLI) | payer MEDICARE, OTHER ==
--- NOTE | 2021-09-10 10:56 | SLEEP CARE CONSULTATION ---
Information from patient questionnaire entered by Silvino Canchola. I have reviewed and concur with the information entered by Silvino Canchola. This document represents the service I personally performed and the decisions made by me, Doug Park MD, [facility]. History of Present Illness Service Date and Time: 09/10/2021 1012 Previous diagnosis: Mild, Obstructive Sleep Apnea-Hypopnea Syndrome AHI: 5.5 (in 2007) Reason for follow up: annual (ANNUAL, LAST SEEN 11/2019) Equipment type: CPAP Equipment obtained from: [employer] Mask style: Full face Prior sleep studies: Yes Year and Where: 2007 - [facility] HPI additional information: Mr. Maharaj returned today to follow up on the nasal CPAP therapy. He was diagnosed to have mild obstructive sleep apnea-hypopnea syndrome. The patient wears a full face mask. He continues to get supplies from [employer] He reports using the device nightly and all through the night. The compliance report shows usage in 365 nights out of the past 365 nights, averaging 5.9 hours a night. The > 4 hour compliance rate for the past 365 days is 93%. He complained of no particular problem with the device such as soreness on the face, dry nose, epistaxis, nasal congestion or headache. He thinks that the pressure of 8 - 12 cmH2O is comfortable. On the CPAP therapy he notices improvement in his sleep quality, and that he wakes up feeling fresher in the morning and more awake/alert during the day. The residual AHI is 2.0. Average air leak is 2.1 L/minute. The 90th percentile pressure is 11.9 cmH2O. His R [employer] AirSense 10 is 2 years old. He also has his old machine in [facility]. Sleep Study - Results Prior sleep studies: Yes Year and Where: 2007 - [facility] Subjective Initial [place] Sleepiness Scale score: 11 (in 2018) Current [place] Sleepiness Scale score: 7 (09/10/21) Allergies and Home Medications Known drug allergies: No Drug allergies reviewed: Yes Home medication list reviewed: Yes Allergy and home medication list: Allergies No Known Drug Allergies Allergy (Verified 12/29/14 15:58) Review of Systems Review of systems same as previous: Yes Physical Exam Vital signs obtained and entered by: LATRELL, [employer]ICE PRESIDENT [employer]ING Blood Pressure: 122/70 (left arm) Cuff size: regular Heart Rate: 57 O2 Saturation: 96 Height: 5 ft 11 in Weight: 228 lb Body Mass Index: 31.8 BMI Classification: Obese Impression and Plan IMPRESSION: 1. Obstructive Sleep Apnea-Hypopnea Syndrome, mild (AHI was 5.5) with the patient doing very well on nasal CPAP therapy. He has excellent compliance and significant clinical improvement. The current pressure setting appears effective and comfortable. No adjustment is necessary today. PLAN: 1. Continue with autoCPAP set at 8 12 cmH2O. 2. Try to lose weight 3. Return for follow up in a year or earlier if there is any problem. Follow up with Sleep Care in: 1 year Visit Type: In Office Time Spent with Patient (minutes): 20 Provider Statement: I spent 100% of the Face to Face Visit with the patient with greater than 50% spent counseling the patient and coordination of care.
[2021-09-10 10:57] VITALS: BP 122/70
== END 2021-09-10 10:13 | disposition home or self-care (01) ==
LOC: SC 10:12
PROVIDERS: ATTEND Internal Medicine Pulmonary Disease
DX: G47.33 Obstructive sleep apnea (adult) (pediatric) (principal); E66.9 Obesity, unspecified; Z68.31 Body mass index [BMI] 31.0-31.9, adult
CPT/HCPCS: 99213; G0463; 99212

== ENCOUNTER 2021-11-15 07:44 | Outpatient (CLI) | payer MEDICARE, OTHER ==
--- NOTE | 2021-11-15 12:18 | Ultrasound Report ---
PROCEDURE: Carotid Doppler Complete INDICATIONS: CAROTID ARTERIAL DISEASE, EJECTION SYSTOLIC MURMUR TECHNIQUE: Color and pulse Doppler interrogation was performed of both carotid systems, with image documentation and velocity measurements. COMPARISON: None. FINDINGS: Right side: Brachial blood pressure: 132/67 mm Hg. Common carotid artery peak systolic velocity: 81 cm/sec. Internal carotid artery peak systolic velocity: 90 cm/sec. Internal carotid artery end diastolic velocity: 33 cm/sec. External carotid artery peak systolic velocity: 138 cm/sec. ICA/CCA peak systolic ratio: 1.1 . Naqvi scale imaging description: Extrahepatic plaque Percent internal carotid artery stenosis: Less than 50 . Vertebral artery: Flow direction is antegrade. Left side: Brachial blood pressure: 126/69 mm Hg. Common carotid artery peak systolic velocity: 96 cm/sec. Internal carotid artery peak systolic velocity: 107 cm/sec. Internal carotid artery end diastolic velocity: 46 cm/sec. External carotid artery peak systolic velocity: 219 cm/sec. ICA/CCA peak systolic ratio: 1.1 . Naqvi scale imaging description: Atherosclerotic plaque Percent internal carotid artery stenosis: Less than 50 . Vertebral artery: Flow direction is antegrade. IMPRESSION: Calcified and noncalcified sclerotic plaque in both proximal internal carotid arteries results in les s than 50% stenosis by ultrasound criteria The estimate of stenosis included in the report of the imaging study was calculated using the NASCET method Reviewed by: Orlando De La Fuente MD on 11/15/2021 11:17 AM ARNOLDO Approved by: Orlando De La Fuente MD on 11/15/2021 11:17 AM ARNOLDO Station ID: [id number]
== END 2021-11-15 07:45 | disposition home or self-care (01) ==
LOC: DI 07:44
PROVIDERS: ATTEND Physician Assistant
DX: I65.23 Occlusion and stenosis of bilateral carotid arteries (principal); I08.0 Rheumatic disorders of both mitral and aortic valves
CPT/HCPCS: 93306; 93880

== ENCOUNTER 2022-11-01 09:13 | Outpatient (CLI) | payer MEDICARE, OTHER ==
--- NOTE | 2022-11-01 11:49 | XRAY Report ---
PROCEDURE: Hip w/Pelvis 2-3V RT INDICATIONS: HIP PAIN RIGHT TECHNIQUE: AP pelvis with lateral view(s) of the right hip(s). COMPARISON: None. FINDINGS: Bones: Moderate bilateral hip joint space narrowing present. Lower lumbar spine advanced degenerativ e disc disease. No evidence of fracture or dislocation. Soft tissues: No suspicious soft tissue calcifications or masses. IMPRESSION: Moderate bilateral hip osteoarthritis. 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
== END 2022-11-01 09:14 | disposition home or self-care (01) ==
LOC: DI 09:13
PROVIDERS: ATTEND Physician Assistant
DX: M16.0 Bilateral primary osteoarthritis of hip (principal); M51.36 Other intervertebral disc degeneration, lumbar region

== ENCOUNTER 2023-09-09 08:55 | Outpatient (CLI) | payer MEDICARE, OTHER | END 2023-09-09 08:56 | disposition home or self-care (01) | LOC: LAB.N 08:55 | PROVIDERS: ATTEND Physician Assistant | DX: R73.03 Prediabetes (principal); E78.5 Hyperlipidemia, unspecified; R06.09 Other forms of dyspnea; R73.01 Impaired fasting glucose; I10 Essential (primary) hypertension | CPT/HCPCS: 36415; 80053; 80061; 83036; 83721; 83880; 84443; 85025 ==

== ENCOUNTER 2023-09-10 07:14 | Outpatient (CLI) | payer MEDICARE, OTHER ==
[2023-09-10 13:00] LABS: BASOPHILS % (AUTO) 0.5 %; EOSINOPHILS # (AUTO) 0.1 10^3/uL (0.0-0.7); EOSINOPHILS % (AUTO) 1.7 %; HCT - HEMATOCRIT 44.5 % (42.0-52.0); HGB - HEMOGLOBIN 14.3 g/dL (14.0-18.0); LYMPHOCYTES # (AUTO) 3.6 10^3/uL (1.5-3.5); LYMPHOCYTES % (AUTO) 44.7 %; MEAN CORPUSCULAR HEMOGLOBIN 31.3 pg (27.0-31.0); MEAN CORPUSCULAR HGB CONC 32.1 g/dL (32.0-36.0); MEAN CORPUSCULAR VOLUME 97.4 fL (80.0-94.0); MEAN PLATELET VOLUME 10.3 fL (7.4-11.4); MONOCYTES # (AUTO) 0.7 10^3/uL (0.0-1.0); MONOCYTES % (AUTO) 8.6 %; NEUTROPHILS # (AUTO) 3.6 10^3/uL (1.5-6.6); NEUTROPHILS % (AUTO) 44.3 %; PLT - PLATELET COUNT 194 10^3/uL (130-450); RED BLOOD COUNT 4.57 10^6/uL (4.70-6.10); RED CELL DISTRIBUTION WIDTH 12.9 % (12.0-15.0); WHITE BLOOD COUNT 8.1 x10^3/uL (4.8-10.8)
[2023-09-10 13:16] LABS: ALBUMIN 4.4 g/dL (3.2-5.5); ALBUMIN/GLOBULIN RATIO 1.8 (1.0-2.2); ALKALINE PHOSPHATASE 49 IU/L (42-121); ALT ALANINE AMINOTRANSFERASE 17 IU/L (10-60); AST ASPARTATE AMINOTRANSFERASE 16 IU/L (10-42); BILIRUBIN,TOTAL 0.9 mg/dL (0.2-1.0); BUN - BLOOD UREA NITROGEN 22 mg/dL (6-20); CALCIUM 9.4 mg/dL (8.5-10.3); CARBON DIOXIDE - CO2 29 mmol/L (21-32); CHLORIDE 104 mmol/L (101-111); CHOL/HDL RATIO 3.5 (<5.0); CHOLESTEROL 131 mg/dL; CREATININE 0.7 mg/dL (0.6-1.3); GFR - MDRD 110 (>89); GLUCOSE 133 mg/dL (74-104); HDL CHOLESTEROL 37 mg/dL; LDL CHOLESTEROL,CALCULATED 69 mg/dL; LDL/HDL RATIO 1.9 (<3.6); POTASSIUM 4.1 mmol/L (3.5-4.5); SODIUM 138 mmol/L (135-145); TOTAL PROTEIN 6.9 g/dL (6.4-8.9); TRIGLYCERIDES 127 mg/dL; VLDL CHOLESTEROL 25 mg/dL
[2023-09-10 13:20] LABS: THYROID STIMULATING HORMONE 0.92 uIU/mL (0.34-5.60)
[2023-09-10 13:25] LABS: ESTIMATED AVERAGE GLUCOSE 137 mg/dL (70-100); HEMOGLOBIN A1c% 6.4 % (4.27-6.07)
== END 2023-09-10 07:15 | disposition home or self-care (01) ==
LOC: LAB.N 07:14
PROVIDERS: ATTEND Physician Assistant
DX: R73.03 Prediabetes (principal); E78.5 Hyperlipidemia, unspecified; I10 Essential (primary) hypertension; R06.09 Other forms of dyspnea
CPT/HCPCS: 36415; 80053; 80061; 83036; 83721; 83880; 84443; 85025

== ENCOUNTER 2023-11-05 07:37 | Outpatient (CLI) | payer MEDICARE, OTHER | END 2023-11-05 07:38 | disposition home or self-care (01) | LOC: DI 07:37 | PROVIDERS: ATTEND Physician Assistant | DX: R06.09 Other forms of dyspnea (principal) | CPT/HCPCS: 93307 ==